=== PATIENT | female | born 1960 | race Caucasian/White ===

== ENCOUNTER 2021-10-27 10:20 | Day surgery (SDC) | payer BC ==
[~2021-10-27 10:20] MED LIST: ATOR80 PO; Amiodarone HCl200 MG PO; Aspir 8181 MG PO; ELIQUIS5 M2 PO; GABA100 PO; METO25 PO; Triamcinolone A15 G3 TOP
--- NOTE | 2021-10-27 10:58 | NUR ---
PATIENT BROUGHT TO THE PROCEDURE AND EKG PERFORMED. PAITENT WAS IN SINUS RHYTHM. EKG VERIFIED AND PROCEDURE CANCELLED. PATIENT WILL CONTINUE ON ALL CURRENT MEDICATIONS AND FOLLOW UP IN THE OFFICE WITH DR. MIRANDA ORDERED. PATIENT DISCHARGED HOME.
== END 2021-10-27 23:39 | disposition home or self-care (01) ==
LOC: MHTC 10:20
DX: I48.3 Typical atrial flutter (principal)
CPT/HCPCS: 93005; 93010; J7030